=== PATIENT | male | born 1965 | race Caucasian/White ===

== ENCOUNTER 2016-06-22 08:08 | Emergency (ER) | payer OTHER ==
[~2016-06-22] VITALS: Ht 175.3 cm; Wt 98.5 kg
[~2016-06-22 08:08] MED LIST: VEDO1INJ IV
[2016-06-22 08:12] VITALS: TEMP 36.7; Ht 175.3 cm; Wt 98.5 kg
--- NOTE | 2016-06-22 09:24 | DIAGNOSTIC IMAGING REPORT ---
RIGHT LOWER EXTREMITY VENOUS DOPPLER CLINICAL HISTORY: Right leg swelling. COMPARISON STUDY: Right lower extremity venous Doppler November TECHNIQUE: Sonography of the deep venous system of the right lower extremity was performed. Compression and augmentation were evaluated. FINDINGS: The right common femoral, superficial femoral and popliteal veins were compressible. Augmentation was normal. Flow was shown within the deep calf vessels. IMPRESSION: No evidence of deep venous thrombus within the right lower extremity. Electronically signed by: Josué Galvan M.D. 06/22/2016 9:22 AM
--- NOTE | 2016-06-22 09:41 | EMERGENCY ROOM VISIT NOTE ---
History First contact with patient: 08:14 Chief Complaint: SWELLING TO EXTREMITY Stated Complaint: SWOLLEN FOOT/LEG History of Present Illness The patient is a 51 year old male who presents to the Emergency Room with complaints of swelling of his right lower extremity over the past few days. The patient is concerned because he has a history of DVT. The patient reports that he had a DVT in the right leg 5 years ago. He does not take anticoagulation at this time. He states that one month ago, he had some pain in his right calf during the night. He began taking aspirin and states he used holistic treatments and the pain resolved. He reports that swelling started in the right lower extremity over the past 3 days. He no longer has any pain in the right leg. He denies any redness or warmth of the leg. He denies any fevers/chills. He denies chest pain or shortness of breath. The patient is not a smoker. He denies any recent long travel. He denies any recent surgeries. Review of Systems A complete 10-point Review of Systems was discussed with the patient, with pertinent positives and negatives listed in the History of Present Illness. All remaining Review of Systems questions can be considered negative unless otherwise specified. Social History Smoking Status: Never Smoker Alcohol Use: none Drug Use: none Marital Status: single Housing Status: lives alone Occupation Status: employed Current/Historical Medications Scheduled Adalimumab (Humira), Unknown Dose INJ Q2WK Calcium/Vitamin D (Os-Boubacar 500 Plus D), 2 TAB PO DAILY Multivitamins/Minerals (Mvi With Minerals), 1 TAB PO Q2D Allergies Coded Allergies: Iodinated Diagnostic Agents (Verified Allergy, Severe, BURNING SENSATION, 06/22/16) Iodine (Verified Allergy, Mild, NAUSEA, FEVER, 06/22/16) Metronidazole (Verified Adverse Reaction, Intermediate, AFFECTED MUSCLE, ) Physical Exam Vital Signs Date Time Temp Pulse Resp B/P Pulse Ox O2 Delivery O2 Flow Rate FiO2 06/22/16 09:53 75 16 145/95 98 06/22/16 08:12 36.7 97 18 154/105 98 Room Air Physical Exam VITALS: Vitals are noted on the nurse's note and reviewed by myself. Vital signs stable. GENERAL: This is a 51-year-old male, in no acute distress, nondiaphoretic, well- developed well-nourished. SKIN: Capillary reflex less than 2 seconds. HEART: Regular rate and rhythm without murmurs gallops or rubs. LUNGS: Clear to auscultation bilaterally without wheezes, rales or rhonchi. EXTREMITIES: There is 1+ pitting edema of the right lower extremity. There is no erythema, warmth or palpable cords. There is no tenderness to palpation of the right calf. NEURO: Patient was alert and oriented to person place and time. Medical Decision & Procedures ER Provider Diagnostic Interpretation: RIGHT LOWER EXTREMITY VENOUS DOPPLER CLINICAL HISTORY: Right leg swelling. COMPARISON STUDY: Right lower extremity venous Doppler November TECHNIQUE: Sonography of the deep venous system of the right lower extremity was performed. Compression and augmentation were evaluated. FINDINGS: The right common femoral, superficial femoral and popliteal veins were compressible. Augmentation was normal. Flow was shown within the deep calf vessels. IMPRESSION: No evidence of deep venous thrombus within the right lower extremity. Medical Decision Differential diagnosis includes DVT, superficial thrombophlebitis, trauma, infection, among others. The patient was evaluated as above. Ultrasound of the right lower extremity was performed and showed no evidence of DVT. The etiology of the patient's swelling is unclear at this time. He was encouraged to elevate the leg to reduce swelling. He will follow-up with his primary care provider within one to 2 days for further evaluation of the swelling. He should return for any new/ concerning symptoms. The patient verbalized understanding of my assessment and treatment plan and was discharged home in good condition. Impression Primary Impression: Swelling of right lower extremity Departure Information Dispostion Home / Self-Care Condition GOOD Referrals Roby Murry D.O.Int.Med. (PCP) Patient Instructions A Signature Page, [facility] Additional Instructions Ultrasound today was negative for DVT. Follow-up with your primary care provider in one to 2 days for further evaluation of your right leg swelling. Elevate the leg as needed to decrease swelling. Return to the emergency department with pain, numbness, worsening swelling or any other new/concerning symptoms.
[2016-06-22 09:53] VITALS: BP 145/95; PULSE 75; O2SAT 98
[2016-12-29] MEDS ORDERED: CALC500C70 PO (08:40)
[2016-12-29] MEDS ORDERED: ADAL1INJ INJ (08:47)
[2016-12-29] MEDS ORDERED: MULTTAB PO (10:55)
[2017-01-17] MEDS ORDERED: WARF5TAB7 PO ×2 (13:49)
== END 2016-06-22 09:58 | disposition home or self-care (01) ==
LOC: C.EDB 08:10
DX: R22.41 Localized swelling, mass and lump, right lower limb (principal); Z86.718 Personal history of other venous thrombosis and embolism; Z79.82 Long term (current) use of aspirin; Z79.899 Other long term (current) drug therapy; Z88.8 Allergy status to other drugs, medicaments and biological substances; Z91.09 Other allergy status, other than to drugs and biological substances

== ENCOUNTER → 2016-09-08 | Outpatient (CLI) | payer OTHER ==
[~2016-09-08] MED LIST changes: +ADAL1INJ INJ; +CALC500C70 PO; +ENOX100I SQ; +MULTTAB PO; -VEDO1INJ IV; +WARF5TAB7 PO; +WARF5TAB90 PO
[2016-09-08 10:59] LABS: BASO % 1.5 %; BASO ABS # 0.12 K/uL (0-0.2); COMPLETE YES; HEMATOCRIT 47.1 % (42-52); IG% 0.1 %; LYMPH % 47.2 %; LYMPH ABS # 3.82 K/uL (1.2-3.4); MEAN CELL VOLUME 91.5 fL (80-100); MEAN PLATELET VOLUME 11.8 fL (7.4-10.4); NEUT % 28.2 %; PLATELET COUNT 303 K/uL (130-400); RED BLOOD COUNT 5.15 M/uL (4.7-6.1)
[2016-09-08 11:27] LABS: ALT/SGPT 39 U/L (12-78); AST/SGOT 42 U/L (15-37); BLOOD UREA NITROGEN 10 mg/dl (7-18); BUN/CREATININE RATIO 11.9 (10-20); C-REACTIVE PROTEIN < 0.29 mg/dl (0-0.29); CALCIUM 8.8 mg/dl (8.5-10.1); CARBON DIOXIDE 28 mmol/L (21-32); CHLORIDE 108 mmol/L (98-107); CREATININE 0.87 mg/dl (0.60-1.40); GLUCOSE 79 mg/dl (70-99); POTASSIUM 3.9 mmol/L (3.5-5.1); SODIUM 143 mmol/L (136-145)
[2016-09-08 11:29] LABS: ALB/GLOB RATIO 0.8 (0.9-2); ALKALINE PHOSPHATASE 150 U/L (45-117)
== END | disposition home or self-care (01) ==
LOC: C.LABBC 08:50
PROVIDERS: ATTEND Family Medicine
DX: R10.13 Epigastric pain (principal); K51.00 Ulcerative (chronic) pancolitis without complications

== ENCOUNTER → 2016-09-14 | Outpatient (CLI) | payer OTHER ==
--- NOTE | 2016-09-14 07:56 | DIAGNOSTIC IMAGING REPORT ---
BILIARY ULTRASOUND CLINICAL HISTORY: Epigastric abdominal pain COMPARISON STUDY: CT scan dated 08/30/2014 FINDINGS: The liver is heterogeneous in echotexture and slightly echogenic. Hepatocellular disease or a diffusely infiltrative process cannot be excluded. There is no intra or extrahepatic biliary ductal dilatation. The common bile duct measures 5 mm. No gallbladder abnormalities are visualized. There is no right-sided hydronephrosis. There is suboptimal evaluation of the pancreas. No definite pancreatic masses are evident. IMPRESSION: 1. Ultrasonographically normal gallbladder. No evidence of ductal dilatation. 2. Heterogeneous hepatic echotexture. This is a nonspecific finding which could be secondary to hepatic steatosis, hepatocellular disease, or an infiltrative process. Electronically signed by: Rbobie Vega M.D. 09/14/2016 7:55 AM Dictated Date/Time: 09/14/2016 7:52 AM
== END | disposition home or self-care (01) ==
LOC: C.ULTRBC 07:02
PROVIDERS: ATTEND Family Medicine
DX: R10.13 Epigastric pain (principal); K76.89 Other specified diseases of liver

== ENCOUNTER → 2016-09-27 | Outpatient (CLI) | payer OTHER ==
[~2016-09-27] MED LIST changes: +OPTIRAY 320 IV PRN
--- NOTE | 2016-09-27 15:54 | DIAGNOSTIC IMAGING REPORT ---
CT SCAN OF THE ABDOMEN COMBO LIVER PROTOCOL CLINICAL HISTORY: Hepatitis. Abnormal ultrasound. COMPARISON STUDY: Abdominal CT dated 08/30/2014. Abdominal ultrasound dated 09/14/2016. TECHNIQUE: Before and following the IV administration of 93 cc of Optiray 320, CT scan of the abdomen is performed from the lung bases to the pelvic inlet utilizing the liver protocol. Images are reviewed in the axial, sagittal, and coronal planes. IV contrast was administered without complication. Automated dose control exposure was utilized. CT DOSE: 2089.59 mGycm FINDINGS: Lung bases: The heart is normal in size and without pericardial effusion. The lung bases are clear. There is a tiny hiatal hernia. Mild gynecomastia is noted. Liver: The contrast-enhanced liver is cirrhotic in morphology and heterogeneous in attenuation. There is nodularity of the hepatic surface contour. There is no intrahepatic biliary ductal dilatation. There are no arterially hypervascular hepatic lesions. Hepatic and portal vasculature: Hepatic arterial anatomy is conventional. The hepatic veins, portal veins, superior mesenteric vein, and splenic vein are patent. Gallbladder: Unremarkable. Spleen: Diminutive. Pancreas: Mildly atrophic and grossly unremarkable. Adrenal glands: Unremarkable. Kidneys: The contrast enhanced kidneys are normal in size and without hydronephrosis. The kidneys enhance symmetrically. No renal calculi are identified on the unenhanced series. Abdominal vasculature: The abdominal aorta is normal in course and caliber. Bowel: Visualized portions of the small bowel and colon are normal in course and caliber. Peritoneum: There is no intraperitoneal free air or abdominal ascites. There is a fat-containing umbilical hernia. Lymphadenopathy: None. Skeletal structures: No lytic or blastic lesions are seen. IMPRESSION: 1. The liver is cirrhotic in morphology and heterogeneous in attenuation. 2. There is no evidence of portal hypertension by CT criteria. 3. No focal hepatic lesion is seen. 4. No acute infectious or inflammatory findings are identified in the abdomen. Electronically signed by: Hans Peacock M.D. 09/27/2016 3:52 PM Dictated Date/Time: 09/27/2016 3:47 PM
== END | disposition home or self-care (01) ==
LOC: C.CTS 14:10
PROVIDERS: ATTEND Internal Medicine
DX: R93.8 Abnormal findings on diagnostic imaging of other specified body structures (principal); K75.4 Autoimmune hepatitis

== ENCOUNTER → 2016-11-01 | Outpatient (CLI) | payer OTHER ==
[~2016-11-01] MED LIST changes: -OPTIRAY 320 IV PRN
[2016-11-01 12:40] LABS: BASO % 1.8 %; BASO ABS # 0.14 K/uL (0-0.2); COMPLETE YES; EOS % 12.2 %; HEMATOCRIT 47.9 % (42-52); IG% 0.1 %; LYMPH % 47.6 %; MEAN CELL VOLUME 91.2 fL (80-100); MEAN CORPUSCULAR HEMOGLOBIN 31.6 pg (25-34); MEAN CORPUSCULAR HGB CONC 34.7 g/dl (32-36); MEAN PLATELET VOLUME 11.7 fL (7.4-10.4); MONO % 12.5 %; NEUT % 25.8 %; PLATELET COUNT 266 K/uL (130-400); RED BLOOD COUNT 5.25 M/uL (4.7-6.1); WHITE BLOOD COUNT 7.98 K/uL (4.8-10.8)
[2016-11-01 12:49] LABS: PROTHROMBIN TIME (PATIENT) 10.4 SECONDS (9.0-12.0)
[2016-11-01 14:05] LABS: CHLORIDE 108 mmol/L (98-107); POTASSIUM 4.1 mmol/L (3.5-5.1); SODIUM 142 mmol/L (136-145)
[2016-11-01 14:56] LABS: ALKALINE PHOSPHATASE 125 U/L (45-117); ALT/SGPT 37 U/L (12-78); AST/SGOT 43 U/L (15-37); BLOOD UREA NITROGEN 8 mg/dl (7-18); BUN/CREATININE RATIO 8.6 (10-20); CARBON DIOXIDE 27 mmol/L (21-32); GLUCOSE 101 mg/dl (70-99)
[2016-11-01 14:58] LABS: ALB/GLOB RATIO 0.9 (0.9-2)
== END | disposition home or self-care (01) ==
LOC: C.LAB1850 11:37
PROVIDERS: ATTEND Registered Nurse
DX: K51.00 Ulcerative (chronic) pancolitis without complications (principal)

== ENCOUNTER 2016-12-29 14:56 | Emergency (ER) | payer OTHER ==
[~2016-12-29] VITALS: Ht 175.3 cm; Wt 95.4 kg
[~2016-12-29 14:56] MED LIST changes: -ENOX100I SQ; -WARF5TAB7 PO; -WARF5TAB90 PO
[2016-12-29 15:01] VITALS: TEMP 37; Ht 175.3 cm; Wt 95.4 kg
--- NOTE | 2016-12-29 16:31 | DIAGNOSTIC IMAGING REPORT ---
LEFT LOWER EXTREMITY VENOUS DOPPLER CLINICAL HISTORY: Left lower extremity pain and swelling. History of deep venous thrombus. COMPARISON STUDY: Left lower extremity venous Doppler December 08 2009. TECHNIQUE: Sonography of the deep venous system of the left lower extremity was performed. Compression and augmentation were evaluated. FINDINGS: The common femoral, superficial femoral and popliteal veins were compressible. Augmentation was normal. Flow was shown within the deep calf vessels. Note is made of superficial thrombus within the left greater saphenous vein which extends from the level the proximal thigh to the distal calf. Minimal flow is noted within the greater saphenous vein. IMPRESSION: 1. Extensive superficial thrombus within the left greater saphenous vein which extends from the level of the proximal thigh to distal calf. 2. No evidence of deep venous thrombus within the left lower extremity. Electronically signed by: Josué Galvan M.D. 12/29/2016 4:29 PM Dictated Date/Time: 12/29/2016 4:27 PM
[2016-12-29 18:00] LABS: BASO % 1.6 %; BASO ABS # 0.15 K/uL (0-0.2); COMPLETE YES; EOS % 6.5 %; IG% 0.1 %; LYMPH % 42.8 %; LYMPH ABS # 4.03 K/uL (1.2-3.4); MEAN CELL VOLUME 89.4 fL (80-100); MEAN CORPUSCULAR HEMOGLOBIN 31.9 pg (25-34); MEAN CORPUSCULAR HGB CONC 35.7 g/dl (32-36); MEAN PLATELET VOLUME 11.2 fL (7.4-10.4); MONO % 11.7 %; NEUT % 37.3 %; PLATELET COUNT 254 K/uL (130-400); RED BLOOD COUNT 5.48 M/uL (4.7-6.1); WHITE BLOOD COUNT 9.42 K/uL (4.8-10.8)
[2016-12-29 18:15] LABS: INR 0.9 (0.9-1.1); PROTHROMBIN TIME (PATIENT) 10.1 SECONDS (9.0-12.0)
[2016-12-29 18:20] LABS: CALCIUM 8.5 mg/dl (8.5-10.1); CREATININE 0.9 mg/dl (0.60-1.40); POTASSIUM 4.2 mmol/L (3.5-5.1)
[2016-12-29 18:30] LABS: ALB/GLOB RATIO 0.8 (0.9-2); THYROID STIMULATING HORMONE 1.74 uIu/ml (0.300-4.500)
[2016-12-29] MEDS ORDERED: ENOXAPARIN 100 MG/1ML SYR SQ ONE (18:30)
[2016-12-29] MEDS ORDERED: LOVENOX TEACHING KIT ONE (18:30)
[2016-12-29] MEDS ORDERED: WARFARIN SOD 5 MG TAB PO ONE (18:30)
[2016-12-29] MEDS ORDERED: WARF5TAB90 PO (19:03)
[2016-12-29] MEDS ORDERED: ENOX100I SQ (19:03)
[2016-12-29 19:34] VITALS: BP 130/93; PULSE 77; O2SAT 99
--- NOTE | 2016-12-29 23:57 | EMERGENCY ROOM VISIT NOTE ---
History First contact with patient: 15:12 Chief Complaint: LEG PAIN,LEG INJURY Stated Complaint: REDNESS, WELLING, MINOR PAIN, DISCOMFORT, L LEG History of Present Illness The patient is a 51 year old male who presents to the Emergency Room with complaints of slowly worsening pain and swelling to his left lower leg. The pain is primarily along his left medial calf and into his left distal thigh. The patient has not had fever or chills. He has a history of Crohn's and is on Humira. The patient also has a history of DVT in the right lower leg years ago. He did complete Coumadin and is no longer on anticoagulants. He does not have any known coagulopathy. The patient does not report injury or trauma. No recent travel history. The patient rates his discomfort a 1/10 and dull in nature. He has not taken anything [id number] for his symptoms. He does not identify aggravating or alleviating factors. Review of Systems More than 10 systems were reviewed and otherwise negative with the exception of history of present illness. Past Medical/Surgical History History of Crohn's disease and DVT Family History No pertinent family history Social History Smoking Status: Never Smoker Alcohol Use: none Drug Use: none Marital Status: single Housing Status: lives alone Occupation Status: employed Current/Historical Medications Scheduled Adalimumab (Humira), 1 DOSE INJ Q2WK Calcium/Vitamin D (Os-Boubacar 500 Plus D), 2 TABS PO DAILY Enoxaparin (Lovenox), 100 MG SQ Q12 Multivitamins/Minerals (Mvi With Minerals), 1 TAB PO Q2D Warfarin Sodium (Coumadin), 1 TAB PO DAILY Allergies Coded Allergies: Iodinated Diagnostic Agents (Verified Allergy, Severe, BURNING SENSATION, 06/22/16) Iodine (Verified Allergy, Mild, NAUSEA, FEVER, 06/22/16) Shellfish (Verified Allergy, Unknown, Unknown, 12/29/16) Metronidazole (Verified Adverse Reaction, Intermediate, AFFECTED MUSCLE, ) Physical Exam Vital Signs Date Time Temp Pulse Resp B/P (MAP) Pulse Ox O2 Delivery O2 Flow Rate FiO2 12/29/16 19:34 77 18 130/93 99 12/29/16 15:01 37.0 104 17 119/80 98 Room Air Physical Exam VITALS: Vitals are noted on the nurse's note and reviewed by myself. Vital signs stable. GENERAL: Well-developed, well-nourished, white male, who is in no acute distress and resting comfortably. Patient is cooperative with the examination. HEAD: Normocephalic atraumatic. HEART: Regular rate and rhythm without murmurs gallops or rubs. LUNGS: Clear to auscultation bilaterally without wheezes, rales or rhonchi. No retractions or accessory muscle use. MUSCULOSKELETAL: Tenderness appreciated along the medial aspect of the left calf into the left thigh posteriorly. No obviously palpable cord. No tenderness of the joint. No obvious infection. Medical Decision & Procedures ER Provider Diagnostic Interpretation: LEFT LOWER EXTREMITY VENOUS DOPPLER CLINICAL HISTORY: Left lower extremity pain and swelling. History of deep venous thrombus. COMPARISON STUDY: Left lower extremity venous Doppler December 08 2009. TECHNIQUE: Sonography of the deep venous system of the left lower extremity was performed. Compression and augmentation were evaluated. FINDINGS: The common femoral, superficial femoral and popliteal veins were compressible. Augmentation was normal. Flow was shown within the deep calf vessels. Note is made of superficial thrombus within the left greater saphenous vein which extends from the level the proximal thigh to the distal calf. Minimal flow is noted within the greater saphenous vein. IMPRESSION: 1. Extensive superficial thrombus within the left greater saphenous vein which extends from the level of the proximal thigh to distal calf. 2. No evidence of deep venous thrombus within the left lower extremity. Laboratory Results 12/29/16 17:35 Red Blood Count 5.48, Mean Corpuscular Volume 89.4, Mean Corpuscular Hemoglobin 31.9, Mean Corpuscular Hemoglobin Concent 35.7, Mean Platelet Volume 11.2, Neutrophils (%) (Auto) 37.3, Lymphocytes (%) (Auto) 42.8, Monocytes (%) (Auto) 11.7, Eosinophils (%) (Auto) 6.5, Basophils (%) (Auto) 1.6, Neutrophils # (Auto ) 3.52, Lymphocytes # (Auto) 4.03, Monocytes # (Auto) 1.10, Eosinophils # (Auto ) 0.61, Basophils # (Auto) 0.15 12/29/16 17:35 Test 12/29/16 17:35 White Blood Count 9.42 K/uL (4.8-10.8) Red Blood Count 5.48 M/uL (4.7-6.1) Hemoglobin 17.5 g/dL (14.0-18.0) Hematocrit 49.0 % (42-52) Mean Corpuscular Volume 89.4 fL (80-100) Mean Corpuscular Hemoglobin 31.9 pg (25-34) Mean Corpuscular Hemoglobin Concent 35.7 g/dl (32-36) Platelet Count 254 K/uL (130-400) Mean Platelet Volume 11.2 fL (7.4-10.4) Neutrophils (%) (Auto) 37.3 % Lymphocytes (%) (Auto) 42.8 % Monocytes (%) (Auto) 11.7 % Eosinophils (%) (Auto) 6.5 % Basophils (%) (Auto) 1.6 % Neutrophils # (Auto) 3.52 K/uL (1.4-6.5) Lymphocytes # (Auto) 4.03 K/uL (1.2-3.4) Monocytes # (Auto) 1.10 K/uL (0.11-0.59) Eosinophils # (Auto) 0.61 K/uL (0-0.5) Basophils # (Auto) 0.15 K/uL (0-0.2) RDW Standard Deviation 49.3 fL (36.4-46.3) RDW Coefficient of Variation 15.1 % (11.5-14.5) Immature Granulocyte % (Auto) 0.1 % Immature Granulocyte # (Auto) 0.01 K/uL (0.00-0.02) Prothrombin Time 10.1 SECONDS (9.0-12.0) Prothromb Time International Ratio 0.9 (0.9-1.1) Activated Partial Thromboplast Time 27.2 SECONDS (21.0-31.0) Partial Thromboplastin Ratio 1.0 Anion Gap 5.0 mmol/L (3-11) Est Creatinine Clear Calc Drug Dose 111.9 ml/min Estimated GFR () 115.0 Estimated GFR (Non- 99.2 BUN/Creatinine Ratio 7.0 (10-20) Calcium Level 8.5 mg/dl (8.5-10.1) Total Bilirubin 0.5 mg/dl (0.2-1) Aspartate Amino Transf (AST/SGOT) 48 U/L (15-37) Alanine Aminotransferase (ALT/SGPT) 46 U/L (12-78) Alkaline Phosphatase 141 U/L (45-117) Total Protein 7.7 gm/dl (6.4-8.2) Albumin 3.5 gm/dl (3.4-5.0) Globulin 4.2 gm/dl (2.5-4.0) Albumin/Globulin Ratio 0.8 (0.9-2) Thyroid Stimulating Hormone (TSH) 1.740 uIu/ml (0.300-4.500) Medications Administered Medications (Trade) Dose Ordered Sig/Purvi Route Start Time Stop Time Status Last Admin Dose Admin Enoxaparin Sodium (Lovenox Inj) 95 mg NOW ONCE SQ 12/29/16 18:30 12/29/16 18:32 DC 12/29/16 18:51 95 MG Miscellaneous (Lovenox Teaching Kit) 1 ea NOW ONCE N/A 12/29/16 18:30 12/29/16 18:32 DC 12/29/16 18:30 1 EA Warfarin Sodium (Coumadin Tab) 10 mg NOW ONCE PO 12/29/16 18:30 12/29/16 18:32 DC 12/29/16 18:52 10 MG ED Course Physical exam and history were performed. Nursing notes and EMR were reviewed. Patient appears to have pain in his left lower extremity from his midcalf to midthigh. The patient has a history of unprovoked DVT in the past, and states that his symptoms feel similar. He is without chest pain or shortness of breath. He does not appear toxic on examination. Ultrasound was performed and does show extensive thrombosis of the superficial saphenous vein. This seems to measure greater than 5 cm and there is concern is the patient has a past history of DVT previously. Because of this the patient is felt to be a candidate for anticoagulopathy, and he agrees. Blood work was obtained and is as above. The patient does not have a significantly elevated white blood cell count. He is without significant renal impairment and his platelet count appears normal. Hypercoagulable labs are pending, as these are send out labs. He does not have a history of recent injury or trauma. No cancer or recent surgery. There are no obvious contraindications for anticoagulation. The patient was started on Lovenox 100 mg subcutaneous here in the department. He was also started on 10 mg oral Coumadin as an initial dose. He underwent Lovenox teaching by the ER pharmacist. I discussed the case with the keycase assembler, as evidently the patient has followed with [facility] physician group previously, however his primary care has left the practice. The patient should be considered a patient under their group, and he will need to contact their facility first thing in the morning. We will have case management call him later in the morning to confirm that he was able to get a follow-up appointment. The patient will need repeat blood work and likely referral to the Coumadin clinic. I contacted the patient's pharmacy ([facility]) directly, and was able to confirm they had both Lovenox and Coumadin in stock. Prescriptions for both of these were sent to the patient's pharmacy, and he is to begin these tomorrow. Overall the patient voiced understanding of this plan. I am unsure of the length of time the patient will need to be on Coumadin. He will need to have this discussion with his primary care physician and the Coumadin clinic. He may need lifetime treatment pending his anti-coagulable workup. The patient was educated on bleeding disorders and consultations from these medications. He was invited back to the ER with any new, worsening, or concerning symptoms. He rated his discomfort a 0/10 at the time of departure. The chart was completed utilizing [employer] Speech Voice Recognition Software. Grammatical errors, random word insertions, pronoun errors, and incomplete sentences are an occasional consequence of this system due to software limitations, ambient noise, and hardware issues. Any formal questions or concerns about the content, text, or information contained within the body of this dictation should be directly addressed to the provider for clarification. . Medical Decision Differential diagnosis: Etiologies such as DVT, musculoskeletal, infection, joint effusion, trauma, lymphedema, idiopathic, CHF, as well as others were entertained.. Impression Primary Impression: Superficial thrombosis of leg Additional Impression: History of DVT (deep vein thrombosis) Departure Information Prescriptions Enoxaparin (LOVENOX) 100 Mg/Ml Inj 100 MG SQ Q12 for 7 Days, #14 SYR Prov: Vijay Arana PA-C 12/29/16 Warfarin Sodium (COUMADIN) 5 Mg Tab 1 TAB PO DAILY for 30 Days, #30 TAB 0 Refills Prov: Vijay Arana PA-C 12/29/16 Referrals No Doctor, Assigned (PCP) Patient Instructions [facility] Problem Qualifiers Primary Impression: Superficial thrombosis of leg Laterality: left Qualified Codes: I82.812 - Embolism and thrombosis of superficial veins of left lower extremities
[2017-01-04 00:27] LABS: ANTITHROMBINIII ACTIVITY** 57 % activity (80-120); B2 GLYCOPROTEIN IGA <9 SAU (<=20); B2 GLYCOPROTEIN IGG <9 SGU (<=20); B2 GLYCOPROTEIN IGM 10 SMU (<=20); LUPUS ANTICOAGULANT** TC36573X Negative (Negative); PROTEIN C ACTIVITY** TC 1777X 116 % (70-180); PROTEIN S ACT(FUNCT)**1779X 79 % (70-150)
[2017-01-17] MEDS ORDERED: WARF5TAB7 PO ×2 (13:49)
== END 2016-12-29 19:37 | disposition home or self-care (01) ==
LOC: C.EDB 14:57 → C.EDA 19:37
DX: I82.812 Embolism and thrombosis of superficial veins of left lower extremity (principal); Z86.718 Personal history of other venous thrombosis and embolism; K50.90 Crohn's disease, unspecified, without complications; Z79.899 Other long term (current) drug therapy

== ENCOUNTER → 2016-12-31 | Outpatient (CLI) | payer OTHER ==
[~2016-12-31] MED LIST changes: +ENOX100I SQ; +WARF5TAB7 PO; +WARF5TAB90 PO
[2016-12-31 12:16] LABS: INR 1.3 (0.9-1.1)
== END | disposition home or self-care (01) ==
LOC: C.LAB1850 10:26
PROVIDERS: ATTEND Nurse Practitioner Adult Health
DX: I82.819 Embolism and thrombosis of superficial veins of unspecified lower extremity (principal)

== ENCOUNTER → 2017-01-03 | Outpatient (CLI) | payer OTHER | END | disposition home or self-care (01) | LOC: C.LABSPEC 09:58 | PROVIDERS: ATTEND Physician Assistant | DX: K51.00 Ulcerative (chronic) pancolitis without complications (principal) ==

== ENCOUNTER → 2017-05-04 | Outpatient (CLI) | payer OTHER ==
[~2017-05-04] MED LIST changes: -ENOX100I SQ; -WARF5TAB90 PO
[2017-05-04 14:56] LABS: PROLACTIN 9.46 ng/mL
== END | disposition home or self-care (01) ==
LOC: C.LAB1850 11:51
PROVIDERS: ATTEND Neuromusculoskeletal Medicine & OMM
DX: N63.0 Unspecified lump in unspecified breast (principal); N62 Hypertrophy of breast

== ENCOUNTER 2019-12-17 07:27 | Observation (INO) ==
--- NOTE | 2019-08-30 09:42 | Anesthesiology Consultation ---
Date of Service August 30, 2019 Assessment & Plan Chart Review Chart Review: clerk entry level initiated History Surgery Operation Date: 09/07/19 08:30 Proposed Procedures p Colonoscopy Dr. Ronny Jefferson, Height/Weight Height: 5 ft 9 in Weight: 90.718 kg Allergies Allergy/AdvReac Type Severity Reaction Status Date / Time Iodinated Contrast Media Allergy Severe BURNING Verified 08/29/19 16:16 SENSATION iodine Allergy Mild NAUSEA, Verified 08/29/19 16:16 FEVER metronidazole Allergy Mild lost Verified 08/29/19 16:16 complete muscle control in thigh shellfish derived Allergy Mild nausea/feve Verified 08/29/19 16:16 r Medications Home Medications Medication Instructions Recorded Confirmed Last Taken multivitamin with minerals 1 tab PO Q OTHER DAY #0 10/08/14 08/29/19 03/26/18 calcium carbonate-vitamin D3 1 tabs PO QAM #0 tab 04/07/16 08/29/19 03/27/18 [Os-Boubacar 500 + D3] sodium,potassium,mag sulfates 17.5 177 ml PO DAILY #354 ml 08/21/19 08/29/19 Unknown gram-3.13 gram-1.6 gram oral soln Simponi 100 mg SUBCUT UD 08/29/19 08/29/19 Unknown prednisone 10 mg PO UD 08/29/19 08/29/19 Unknown Past Medical History Medical History Colon polyps Deep vein thrombosis 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 Ulcerative colitis Past Family History Family History Father Family history of diabetes mellitus Grandmother Family history of diabetes mellitus paternal Past Surgical History Surgical History History of appendectomy History of colonoscopy History of flexible sigmoidoscopy History of tooth extraction wisdom teeth Social History Smoking Status: Never smoker Do You Dip or Chew Tobacco: No Hx Alcohol Use: No Hx Substance Use: No substance use type: does not use
--- NOTE | 2019-12-11 13:33 | Anesthesiology Consultation ---
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 Ronny Jefferson, Height/Weight Height: 5 ft 9 in Weight: 90.718 kg Allergies Allergy/AdvReac Type Severity Reaction Status Date / Time Iodinated Contrast Media Allergy Severe BURNING Verified 12/10/19 10:40 SENSATION iodine Allergy Mild NAUSEA, Verified 12/10/19 10:40 FEVER metronidazole Allergy Mild lost Verified 12/10/19 10:40 complete muscle control in thigh shellfish derived Allergy Mild nausea/feve Verified 12/10/19 10:40 r Medications Home Medications Medication Instructions Recorded Confirmed Last Taken multivitamin with minerals 1 tab PO Q OTHER DAY #0 10/08/14 12/10/19 03/26/18 calcium carbonate-vitamin D3 1 tabs PO QAM #0 tab 04/07/16 12/10/19 03/27/18 [Os-Boubacar 500 + D3] sodium,potassium,mag sulfates 17.5 177 ml PO DAILY #354 ml 08/21/19 11/06/19 Unknown gram-3.13 gram-1.6 gram oral soln Simponi 100 mg SUBCUT UD 08/29/19 12/10/19 Unknown Past Medical History Medical History Colon polyps Deep vein thrombosis 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 History of DVT (deep vein thrombosis) (Inactive) Superficial thrombosis of leg (Inactive) Ulcerative colitis Past Family History Family History Father Family history of diabetes mellitus Grandmother Family history of diabetes mellitus paternal Past Surgical History Surgical History History of appendectomy History of colonoscopy History of flexible sigmoidoscopy History of tooth extraction wisdom teeth Social History Smoking Status: Never smoker Do You Dip or Chew Tobacco: No Hx Alcohol Use: No Hx Substance Use: No substance use type: does not use Testing Laboratory Results Laboratory Tests 07/24/18 08/16/19 08/16/19 07:56 11:41 11:41 WBC 7.52 Hgb 15.8 Hct 45.3 Plt Count 261 PT 21.8 H INR 2.3 H Sodium 141 Potassium 3.4 L Chloride 108 H Carbon Dioxide 27 BUN 9 Creatinine 1.12 Glucose 117 H Travel history reviewed. Pt low risk. Pt has no COVID test pending. Reassess day of procedure.
[2019-12-17] MEDS ORDERED: PROPOFOL IV EMULSION 10 MG/ML 20 ML VIAL IV ONE (08:09)
[2019-12-17] MEDS ORDERED: LIDOCAINE HCL 2% 2 ML VIAL/AMP(20MG/ML) INFIL ONE (08:09)
--- NOTE | 2019-12-17 08:26 | History & Physical Report ---
Date of Service December 17, 2019 Assessment & Plan (1) Ulcerative colitis: Proceed with colonoscopy History of Present Illness Chief Complaint: Ulcerative pancolitis Primary Care Provider: Golden Dye III, CRNP 54 yo CM who presents for colonoscopy secondary to ulcerative pancolitis. Allergies Allergy/AdvReac Type Severity Reaction Status Date / Time Iodinated Contrast Media Allergy Severe BURNING Verified 12/17/19 08:01 SENSATION iodine Allergy Mild NAUSEA, Verified 12/17/19 08:01 FEVER metronidazole Allergy Mild lost Verified 12/17/19 08:01 complete muscle control in thigh shellfish derived Allergy Mild nausea/feve Verified 12/17/19 08:01 r Home Medications Home Medications Medication Instructions Recorded Confirmed Type multivitamin with minerals 1 tab PO Q OTHER DAY #0 10/08/14 12/17/19 History calcium carbonate-vitamin D3 1 tabs PO QAM #0 tab 04/07/16 12/17/19 History [Os-Boubacar 500 + D3] sodium,potassium,mag sulfates 17.5 177 ml PO DAILY #354 ml 08/21/19 12/17/19 Rx gram-3.13 gram-1.6 gram oral soln Simponi 100 mg SUBCUT UD 08/29/19 12/17/19 History Past Med/Surg History Medical History Colon polyps Deep vein thrombosis 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 History of DVT (deep vein thrombosis) (Inactive) Superficial thrombosis of leg (Inactive) Ulcerative colitis Surgical History History of appendectomy History of colonoscopy History of flexible sigmoidoscopy History of tooth extraction wisdom teeth Family History Father Family history of diabetes mellitus Grandmother Family history of diabetes mellitus paternal Social History Preferred Language: Austrian Facilities Clerk Required: No Beliefs That Will Affect Care: None Current Living Situation: Alone Other Information That Helps Us Care for You: No Feels Safe at Home: Yes Safety Concerns: Feels Safe At This Time Smoking Status: Never smoker Do You Dip or Chew Tobacco: No ; Second Hand Exposure: No ; Tobacco Cessation Education Requested by Patient: No Hx Alcohol Use: No Hx Substance Use: No Physical Exam Constitutional: WD/WN, vitals as above Respiratory: normal respiratory effort, lungs clear to auscultation Cardiovascular: RRR, no murmur, no edema Gastrointestinal (Abdomen): normal bowel sounds, soft, nontender, no hepatosplenomegaly Results & Data Vital Signs (Past 12 Hours) Vital Signs Temp Pulse Resp BP Pulse Ox 12/17/19 08:05 36.7 C 90 18 119/87 97 Coding Level of Care Code None Diagnoses Ulcerative colitis K51.90
[2019-12-17] MEDS ORDERED: SODIUM CHLORIDE 0.9% 1000ML 1,000 ML IV SCH (08:30)
--- NOTE | 2019-12-17 08:53 | GI REPORT ---
Patient Name: Jonathan Larios Procedure Date: 12/17/2019 8:17 AM Date of : 1965 Admit Type: Outpatient Age: 54 Gender: Male Attending MD: Nick Jefferson DO Procedure: Colonoscopy Providers: Nick Jefferson DO Referring MD: Golden Dye Indications: Disease activity assessment of chronic ulcerative pancolitis Medicines: Monitored Anesthesia Care Complications: Tear in the proximal ascending colon. Estimated Blood Loss: Estimated blood loss was minimal. Procedure: Pre-Anesthesia Assessment: - Prior to the procedure, a History and Physical was performed, and patient medications and allergies were reviewed. The patient's tolerance of previous anesthesia was also reviewed. The risks and benefits of the procedure and the sedation options and risks were discussed with the patient. All questions were answered, and informed consent was obtained. Prior Anticoagulants: The patient has taken no previous anticoagulant or antiplatelet agents. ASA Grade Assessment: II - A patient with mild systemic disease. After reviewing the risks and benefits, the patient was deemed in satisfactory condition to undergo the procedure. After I obtained informed consent, the scope was passed under direct vision. Throughout the procedure, the patient's blood pressure, pulse, and oxygen saturations were monitored continuously. The Colonoscope was introduced through the anus and advanced to the terminal ileum. The colonoscopy was performed without difficulty. The patient tolerated the procedure fairly well. Findings: The perianal and digital rectal examinations were normal. Inflammation characterized by altered vascularity, congestion (edema), erythema, scarring and confluent ulcerations was found in a continuous and circumferential pattern from the rectum to the terminal ileum with evidence of backwash ileitis. No sites were spared. This was severe, and when compared to previous examinations, the findings are worsened. Fluid aspiration for cell count and differential, bacterial cultures and Clostridium difficile was performed in the entire colon. Impression: - Pancolitis ulcerative colitis. Inflammation was found from the rectum to the terminal ileum (backwash Ileitis). This was severe, worsened compared to previous examinations. - Fluid aspiration was performed. Recommendation: - Admit the patient to hospital [facility] for ongoing care. - NPO. - Continue present medications. - Refer to a surgeon today. - Perform a CT scan (computed tomography) of abdomen with contrast and pelvis with contrast today. Nick Jefferson DO 12/17/2019 8:53:19 AM This report has been signed electronically. Note Initiated On: 12/17/2019 8:17 AM Number of Addenda: 0 I attest to the content of the Intraoperative Record and orders documented therein, exceptions below {[id number]}
--- NOTE | 2019-12-17 09:08 | Gastrointestinal Consultation ---
Date of Consultation December 17, 2019 Assessment & Plan (1) Ulcerative pancolitis: Patient is a 54 yo male with ulcerative pancolitis worsened from his baseline who presented for an outpatient colonoscopy today. Given friability of colonic mucosa there is concern for perforation. History of non-compliance with maintaining a steady biologic option. Currently on Simponi. -Admit to inpatient status -Keep NPO -CT abdomen/pelvis with po & IV contrast STAT to r/o perforation -IV Solumedrol 40 mg BID -General surgery consult. Given treatment failure & non-compliance with other medications, even if patient does not currently have a perforation--concern would be whether he would benefit from a colectomy in the future given the severity of his disease. We will continue to follow this patient and make further recommendations as the clinical situation unfolds. If you should have any questions or concerns, do not hesitate to contact us at [phone] or [phone]. Supervising Physician Co-Signing Physician Notes Agree with Violet Montalvo, PAC Abd: Soft, NT, ND, +BS Continue current therapy CT scan today Surgery consult History of Present Illness Reason for Consultation: Ulcerative Colitis Attending Physician: Nick Jefferson, DO History of Present Illness Patient is a 54 yo male who presented to [facility] for a colonoscopy to further assess his Ulcerative pancolitis. 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 The patient's colonoscopy this morning indicated severe panulcerative colitis with friable tissue and concern was for perforation. After a combination of non-compliance and reported side effects or lack of desire to continue other medications, he has made his way through Remicade, Humira, Entyvio, 6MP and now is on Simponi which is not typically first choice for his disease. He had requested to take Xeljanz, however it was explained that his liver issues are a contraindication to this therapy. In July 2019, he contacted the outpatient clinic to report worsening symptoms of his UC. He reported diarrhea 10-12 times daily with fecal urgency, associated abdominal discomfort, & fatigue despite his Simponi injections. He obtained a CBC, CMP, CRP, C diff, stool culture, & stool calprotectin at that time. When his infectious work-up was negative, he was placed on an 8 week steroid therapy. Allergies Allergy/AdvReac Type Severity Reaction Status Date / Time Iodinated Contrast Media Allergy Severe BURNING Verified 12/17/19 08:01 SENSATION iodine Allergy Mild NAUSEA, Verified 12/17/19 08:01 FEVER metronidazole Allergy Mild lost Verified 12/17/19 08:01 complete muscle control in thigh shellfish derived Allergy Mild nausea/feve Verified 12/17/19 08:01 r Home Medications Home Medications Medication Instructions Recorded Confirmed Type multivitamin with minerals 1 tab PO Q OTHER DAY #0 10/08/14 12/17/19 History calcium carbonate-vitamin D3 1 tabs PO QAM #0 tab 04/07/16 12/17/19 History [Os-Boubacar 500 + D3] sodium,potassium,mag sulfates 17.5 177 ml PO DAILY #354 ml 08/21/19 12/17/19 Rx gram-3.13 gram-1.6 gram oral soln Simponi 100 mg SUBCUT UD 08/29/19 12/17/19 History Patient History Medical History (Updated 12/17/19 @ 10:05 by Stephany Peña PA-C) Colon polyps Deep vein thrombosis 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 History of DVT (deep vein thrombosis) Superficial thrombosis of leg (Inactive) Ulcerative colitis Surgical History History of appendectomy History of colonoscopy History of flexible sigmoidoscopy History of tooth extraction wisdom teeth Family History Father Family history of diabetes mellitus Grandmother Family history of diabetes mellitus paternal Social History Preferred Language: Turkmen Bowling Ball Marker Required: No Beliefs That Will Affect Care: None Current Living Situation: Alone Other Information That Helps Us Care for You: No Feels Safe at Home: Yes Safety Concerns: Feels Safe At This Time Smoking Status: Never smoker Do You Dip or Chew Tobacco: No ; Second Hand Exposure: No ; Tobacco Cessation Education Requested by Patient: No Hx Alcohol Use: No Hx Substance Use: No Review of Systems Constitutional: no fever Eyes: no problem reported Ear, Nose, Mouth, Throat: no problem reported Respiratory: no cough and no dyspnea Cardiovascular: no chest pain Gastrointestinal: + abdominal pain and + diarrhea/loose stools Musculoskeletal: no problem reported Integumentary: no rash Neurologic: no problem reported Psychiatric: no problem reported Endocrine: + fatigue Physical Exam Constitutional: WD/WN, vitals as above Eyes: PERRL, conjunctivae normal, anicteric sclerae ENMT: Ears: no hearing impairment Neck: normal visual inspection Respiratory: normal respiratory effort, lungs clear to auscultation Cardiovascular: Rate/Rhythm: regular rate and regular rhythm Gastrointestinal (Abdomen): normal bowel sounds, soft, nontender, no hepatosplenomegaly Musculoskeletal: no cyanosis or clubbing, extremities motor strength 5/5 Skin: no rashes, warm and dry Neurologic: Speech / Cognition: normal speech Psychiatric: A+Ox3, euthymic affect Results & Data ([facility]) Vital Signs (Past 12 Hours) Vital Signs Temp Pulse Resp BP Pulse Ox 12/17/19 08:48 87 18 126/83 99 12/17/19 08:05 36.7 C 90 18 119/87 97 PG Care Time/CCT Total # of Minutes Spent Total Time Spent with Patient: Total time spent is greater than 50% in coordination of care (as documented) at patient's floor/unit and/or counseling patient: Coding Level of Care Code 44828 Inpt Consult Level 4 Diagnoses Ulcerative pancolitis K51.00
--- NOTE | 2019-12-17 09:15 | Anesthesiology Progress Note ---
Date of Service December 17, 2019 Anesthesia Post Procedure Vital Signs Vital Signs: Temp Pulse Resp BP Pulse Ox 12/17/19 09:03 90 16 136/99 98 12/17/19 08:48 87 18 126/83 99 12/17/19 08:05 36.7 C 90 18 119/87 97 Transfer of Care Handoff Completed per policy Notes Mental Status: alert / awake / arousable and participated in evaluation Patient Amnestic to Procedure: Yes Nausea / Vomiting: adequately controlled Pain: adequately controlled Airway Patency, RR, SpO2: stable & adequate BP & HR: stable & adequate Hydration State: stable & adequate Anesthetic Complications: no major complications apparent
[2019-12-17] MEDS ORDERED: PIPERACILL/TAZOBAC CONSULT ACTIVE PRN (09:39)
--- NOTE | 2019-12-17 10:06 | History & Physical Report ---
Date of Service December 17, 2019 Assessment & Plan (1) Ulcerative pancolitis: - Admit to med/surg with tele - CT abd/pelvis per GI - oral contrast only -- pt reports allergic rxn to IV and required premedication with benadryl in the past. - Will obtain cbc, bmp, crp - GI consulted - discussed with Violet Montalvo - Will have stool studies as per GI - Start zosyn IV empirically for now - Generally surg consult for possible colon perf - Will start solumedrol 40 mg IV BID (2) Cirrhosis of liver: (3) Autoimmune hepatitis: - Hx of such, follows with GI hepatology with [facility] - Pt reports that this was 15-20 years ago and he follows with this group, outpt within the last 2 years - will await CT report to see status of this (4) DVT prophylaxis: DVT ppx- teds, ambulatory CODE: Full Dispo: From home, likely to remain in the hospital x 1-2 days. History of Present Illness Primary Care Provider: Golden Dye, DESIRAE, MARIANNE This is a 54-year-old male with past medical history of ulcerative pancolitis, mainly medication noncompliance, history of multiple medication failures, and cirrhosis due to autoimmune hepatitis, hx of DVT, HTN, pre-diabetes, who presents for routine colonoscopy with Dr. Jefferson. He was found to have severely friable mucosa of the colon which cause concern for during procedure, and was concerns for possible perforation of the colon therefore medicine was asked to admit the patient. He denies any acute complaints currently, feels slightly distended after having procedure but no pain. No history of nausea, vomiting, bloody diarrhea, or pain. He reports that prednisone has worked well for him in the past as far as reducing the ulcerative colitis flare. He admits to having tried multiple medications in the past, with the best one being humira, however required a double dose of this and states his insurance would not cover it. He is currently on Symposi monthly injections for UC, and has the next dose being delivered to his house tomorrow. Allergies Allergy/AdvReac Type Severity Reaction Status Date / Time Iodinated Contrast Media Allergy Severe BURNING Verified 12/17/19 08:01 SENSATION iodine Allergy Mild NAUSEA, Verified 12/17/19 08:01 FEVER metronidazole Allergy Mild lost Verified 12/17/19 08:01 complete muscle control in thigh shellfish derived Allergy Mild nausea/feve Verified 12/17/19 08:01 r Home Medications Home Medications Medication Instructions Recorded Confirmed Type multivitamin with minerals 1 tab PO Q OTHER DAY #0 10/08/14 12/17/19 History calcium carbonate-vitamin D3 1 tabs PO QAM #0 tab 04/07/16 12/17/19 History [Os-Boubacar 500 + D3] sodium,potassium,mag sulfates 17.5 177 ml PO DAILY #354 ml 08/21/19 12/17/19 Rx gram-3.13 gram-1.6 gram oral soln Simponi 100 mg SUBCUT UD 08/29/19 12/17/19 History Past Med/Surg History Medical History (Updated 12/17/19 @ 10:05 by Stephany Peña PA-C) Colon polyps Deep vein thrombosis 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 History of DVT (deep vein thrombosis) Superficial thrombosis of leg (Inactive) Ulcerative colitis Surgical History History of appendectomy History of colonoscopy History of flexible sigmoidoscopy History of tooth extraction wisdom teeth Family History Father Family history of diabetes mellitus Grandmother Family history of diabetes mellitus paternal Social History Preferred Language: Bulgarian Residential Worker Required: No Beliefs That Will Affect Care: None Current Living Situation: Alone Other Information That Helps Us Care for You: No Feels Safe at Home: Yes Safety Concerns: Feels Safe At This Time Smoking Status: Never smoker Do You Dip or Chew Tobacco: No ; Second Hand Exposure: No ; Tobacco Cessation Education Requested by Patient: No Hx Alcohol Use: No Hx Substance Use: No Review of Systems Review of Systems: Constitutional: No fever, sweats or chills Eyes: No diplopia, no worsening or blurred vision ENT: normal hearing, no trouble swallowing Respiratory: No cough, sputum, dyspnea at rest or on exertion Cardiovascular: No chest pain, tightness or palpitations Abdomen: No pain, nausea, vomiting, diarrhea or constipation Musculoskeletal: No joint pain, calf pain, swelling Neurologic: No weakness, numbness/tingling, or balance problems Psychiatric: No anxiety or depression Skin: No rash or itch Physical Exam Physical Exam: General: awake, alert, no apparent distress Head: Normocephalic, atraumatic ENT: PERRL, EOMI, no pharyngeal exudate, mucous membranes moist Chest: Clear to auscultation, on room air, no adventitious breath sounds Cardiac: Regular rate and rhythm, no murmur, no JVD, normal peripheral pulses, good capillary refill Abdominal: NABS x 4 quadrants, soft, nontender to palpation, no rebound, guarding or tenderness Extremities: Normal inspection, no peripheral edema or erythema, calfs nontender to palpation Psych: Normal mood and affect Neuro: AAO x 3, strength intact bilaterally and related 5/5, no motor deficits, speech is clear, no peripheral sensory deficits Results & Data Results & Data ([facility]) Vital Signs (Past 12 Hours) Vital Signs Temp Pulse Resp BP Pulse Ox 12/17/19 09:18 88 16 132/91 98 12/17/19 09:03 90 16 136/99 98 12/17/19 08:48 87 18 126/83 99 12/17/19 08:05 36.7 C 90 18 119/87 97 Code Status & VTE Plan Code Status Full - discussed with the pt VTE Prophylaxis Plan VTE Prophylaxis will be ordered: Yes Supervising Physician Co-Signing Physician Notes During my face to face enocunter with the patient, I obtained a history and physical examination. I answered all of the patients question Agree with DYLAN Tobin Patient continues to have bloody and loose stools. This is likely from his ulcerative pancolitis. Patient will require steroids and response likely takes about 48-72 hours. will monitor hemoglobin. Continue current therapy PG Care Time/CCT Total # of Minutes Spent Total Time Spent with Patient: Total time spent is greater than 50% in coordination of care (as documented) at patient's floor/unit and/or counseling patient: Coding Level of Care Code 08137 Initial Inpt Care Lvl 3 Diagnoses Ulcerative pancolitis K51.00 Cirrhosis of liver K74.60 Autoimmune hepatitis K75.4 DVT prophylaxis Z29.9
--- NOTE | 2019-12-17 12:42 | CT Scan Report ---
CT abd pelvis oral con only CT DOSE: 445.76 mGy.cm HISTORY: Pain. UC, r/o perf TECHNIQUE: Multiaxial CT images of the abdomen and pelvis were performed following the use of oral co ntrast. A dose lowering technique was utilized adhering to the principles of ALARA. COMPARISON STUDY: 09/27/2016 FINDINGS: Lung bases are clear. Mild hepatic cirrhosis unchanged. Kidneys negative for calcification or hydronephrosis. There is a 2 mm nonobstructing cortical calcifi cation lower left kidney. The small bowel pattern is unremarkable. Colon demonstrated generalized wall thickening throughout. There is mild pericolonic infiltrative yobany nge. There is no evidence for abscess collection or free fluid. There are several small reactive mesenteric and omental nodes. No evidence for abscess. Several small air bubbles extrinsic to the lumen of the mid ascending colon best seen transaxial imag e 181 IMPRESSION: 1. Generalized nonspecific colitis involving the colon.. 2. Mild pericolonic infiltrative change. 3. No evidence for abscess collection obstruction. 4. Moderate reactive mesenteric and/or omental adenitis. 5. Several small localized air bubbles adjacent to the mid ascending colon suggesting small focal per forations. ACT 112: Negative or not required by law. The above report was generated using voice recognition software. It may contain grammatical, syntax or spelling errors. Electronically signed by: Brody Rios M.D. 12/17/2019 12:41 PM
[2019-12-17] MEDS ORDERED: ACETAMINOPHEN 325 MG TAB PO PRN (12:45)
[2019-12-17] MEDS ORDERED: ONDANSETRON INJ 2 MG/ML 2 ML VIAL IV PRN (12:45)
[2019-12-17] MEDS: LACTATED RINGER'S 1,000 ML IV SCH ×2 (12:52→21:44)
[2019-12-17] MEDS ORDERED: PIPERACILLIN/TAZOBACTAM 3.375 GM in DEXTROSE 5% 100 ML IV ONE (13:00)
[2019-12-17] MEDS: methylPREDNISolone 40 MG in SYRINGE 0 ML IV SCH ×2 (13:30→20:34)
[2019-12-17 14:06] LABS: Estimated Average Glucose 123 mg/dl; Hemoglobin A1C 5.9 % (4.5-5.6)
--- NOTE | 2019-12-17 14:54 | Surgery Consultation ---
Date of Consultation December 17, 2019 Assessment & Plan (1) Ulcerative pancolitis: 54-year-old male with significant ulcerative pancolitis. His CT scan did reveal some microperforation, but no evidence of significant inflammation or abscess. His exam is mostly benign. At this point I would recommend bowel rest, antibiotics, and consideration of steroid therapy given his UC flare. He should consider elective total proctocolectomy in the future which should be performed by colorectal surgeon. I informed him that we would only perform an emergency total abdominal colectomy if absolutely necessary here. If his condition fails to improve we may consider transfer to a tertiary center for evaluation by colorectal surgeon. Surgery will continue to follow, call with questions or concerns. (2) Autoimmune hepatitis: History of Present Illness Reason for Consultation: Ulcerative colitis, possible perforation Attending Physician: Nick Jefferson, DO History of Present Illness 54-year-old male with long history of ulcerative colitis, with worsening symptoms over the past few weeks despite biologic therapy. He is tried multiple medicines in the past and has had repeated flares. He did discuss his case with a colorectal surgeon in the past, but did not want to have 3 surgeries or an ostomy for any period of time. Over the past week he has had worsening cramping along with some bloody bowel movements. Dr. Jefferson performed a colonoscopy this morning and noticed significant inflammation and induration and friability of the mucosa, and was concerned that he could have ischemia or perforation. The patient was admitted to the medicine service, and a CT scan was ordered with oral contrast. Surgery was consulted to assist with management. Upon entering the room the patient is sitting up comfortably, complains of some cramping from the colonoscopy but no significant abdominal pain. He is in no acute distress. He takes Simponi, and is due for a dose tomorrow. Allergies Allergy/AdvReac Type Severity Reaction Status Date / Time Iodinated Contrast Media Allergy Severe BURNING Verified 12/17/19 08:01 SENSATION iodine Allergy Mild NAUSEA, Verified 12/17/19 08:01 FEVER metronidazole Allergy Mild lost Verified 12/17/19 08:01 complete muscle control in thigh shellfish derived Allergy Mild nausea/feve Verified 12/17/19 08:01 r Home Medications Home Medications Medication Instructions Recorded Confirmed Type multivitamin with minerals 1 tab PO Q OTHER DAY #0 10/08/14 12/17/19 History calcium carbonate-vitamin D3 1 tabs PO QAM #0 tab 04/07/16 12/17/19 History [Os-Boubacar 500 + D3] sodium,potassium,mag sulfates 17.5 177 ml PO DAILY #354 ml 08/21/19 12/17/19 Rx gram-3.13 gram-1.6 gram oral soln Simponi 100 mg SUBCUT UD 08/29/19 12/17/19 History Patient History Medical History (Updated 12/17/19 @ 10:05 by Stephany Peña PA-C) Colon polyps Deep vein thrombosis 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 History of DVT (deep vein thrombosis) Superficial thrombosis of leg (Inactive) Ulcerative colitis Surgical History History of appendectomy History of colonoscopy History of flexible sigmoidoscopy History of tooth extraction wisdom teeth Family History Father Family history of diabetes mellitus Grandmother Family history of diabetes mellitus paternal Social History Preferred Language: [place] Icer Hand Required: No Beliefs That Will Affect Care: None Current Living Situation: Alone Other Information That Helps Us Care for You: No Feels Safe at Home: Yes Safety Concerns: Feels Safe At This Time Smoking Status: Never smoker Do You Dip or Chew Tobacco: No ; Second Hand Exposure: No ; Tobacco Cessation Education Requested by Patient: No Hx Alcohol Use: No Hx Substance Use: No Review of Systems Review of Systems: All systems reviewed & are unremarkable except as noted in HPI & below Physical Exam Constitutional: WD/WN, vitals as above Eyes: PERRL, conjunctivae normal, anicteric sclerae ENMT: external ear and nose normal, oropharynx normal Neck: trachea midline, no thyromegaly Respiratory: normal respiratory effort, lungs clear to auscultation Cardiovascular: RRR, no murmur, no edema Gastrointestinal (Abdomen): Percussion/Palpation: + abdomen tender (Abdomen with mild tenderness to palpation throughout, no guarding or rebound.) and abdomen soft; no guarding, abdomen not rigid and no hepatosplenomegaly Musculoskeletal: no cyanosis or clubbing, extremities motor strength 5/5 Skin: no rashes, warm and dry Neurologic: PERRL, EOMI, accommodation nl, no face palsy, no dysarthria Psychiatric: A+Ox3, euthymic affect Lymphatic: no cervical or axillary lymphadenopathy Results & Data Vital Signs (Past 12 Hours) Vital Signs Temp Pulse Resp BP Pulse Ox 12/17/19 11:25 36.7 C 77 18 131/87 98 12/17/19 09:18 88 16 132/91 98 12/17/19 09:03 90 16 136/99 98 12/17/19 08:48 87 18 126/83 99 12/17/19 08:05 36.7 C 90 18 119/87 97 Laboratory Results Laboratory Results - last 24 hr 12/17/19 12/17/19 12/17/19 08:39 13:04 13:04 Estimat Average Glucose 123 Hemoglobin A1c 5.9 H Lactate C-Reactive Protein 0.78 H Stl C. diff Tox B Gene Negative Cdiff Gene 12/17/19 13:22 Estimat Average Glucose Hemoglobin A1c Lactate 2.1 H* C-Reactive Protein Stl C. diff Tox B Gene Diagnostic Findings [place], [place] [phone] CT Scan Report Patient: DANNY ARAYA Date: 12/17/19 MR#: [id number]: [address] [place] [address] Acct ID:[id number]: Date: 1965ty Zip: [place] [address] Age: 54Location: ENDO Sex: M Room/Bed: Att Phy: Nick Jefferson, DODiagnosis: Diarrhea, Fecal Urgency, Other Fatigue Kourtney Phy: Golden Dye, III, CRNPService Date: 12/17/19 Fam Phy:Interpreting Phy: Brody Rios MD Admit Phy: Ordering Phy: Violet Montalvo PA-C cc: ~ CT abd pelvis oral con only CT DOSE: 445.76 mGy.cm HISTORY: Pain. UC, r/o perf TECHNIQUE: Multiaxial CT images of the abdomen and pelvis were performed following the use of oral contrast. A dose lowering technique was utilized adhering to the principles of ALA. COMPARISON STUDY: 09/27/2016 FINDINGS: Lung bases are clear. Mild hepatic cirrhosis unchanged. Kidneys negative for calcification or hydronephrosis. There is a 2 mm nonobstructing cortical calcification lower left kidney. The small bowel pattern is unremarkable. Colon demonstrated generalized wall thickening throughout. There is mild pericolonic infiltrative change. There is no evidence for abscess collection or free fluid. There are several small reactive mesenteric and omental nodes. No evidence for abscess. Several small air bubbles extrinsic to the lumen of the mid ascending colon best seen transaxial image 181 IMPRESSION: 1. Generalized nonspecific colitis involving the colon.. 2. Mild pericolonic infiltrative change. 3. No evidence for abscess collection obstruction. 4. Moderate reactive mesenteric and/or omental adenitis. 5. Several small localized air bubbles adjacent to the mid ascending colon suggesting small focal perforations. PG Care Time/CCT Total # of Minutes Spent Total Time Spent with Patient: Total time spent is greater than 50% in coordination of care (as documented) at patient's floor/unit and/or counseling patient: Coding Level of Care Code 69519 Inpt Consult Level 3 Diagnoses Ulcerative pancolitis K51.00 Autoimmune hepatitis K75.4
[2019-12-17 15:45] LABS: Basophils # (auto) 0.03 K/uL (0-0.2); Basophils % (auto) 0.3 %; Eosinophils # (auto) 0.09 K/uL (0-0.5); Eosinophils % (auto) 0.8 %; Hematocrit (blood only) 48.3 % (42-52); Immature Granulocytes # (auto) 0.02 K/uL (0.00-0.02); Immature Granulocytes % (auto) 0.2 %; Mean Corpuscular Hemoglobin 32.4 pg (25-34); Mean Corpuscular Hgb Conc 35.2 g/dL (32-36); Mean Corpuscular Volume 92.2 fL (80-100); Mean Platelet Volume 10.5 fL (7.4-10.4); Monocytes # (auto) 0.44 K/uL (0.11-0.59); Neutrophils # (auto) 9.09 K/uL (1.4-6.5); Neutrophils % (auto) 83.7 %; Platelet Count 266 K/uL (130-400); RDW Coefficient of Variation 13.6 % (11.5-14.5); RDW Standard Deviation 46.2 fL (36.4-46.3); Red Blood Count 5.24 M/uL (4.7-6.1); White Blood Count 10.87 K/uL (4.8-10.8)
[2019-12-17 16:01] LABS: Albumin Level 2.6 gm/dl (3.4-5.0); BUN Creatinine Ratio 8.6 (10-20); Calcium 8.7 mg/dl (8.5-10.1); Creatinine Clr Calc Pharmacy 87.2 ml/min; Est GFR (African American) 101.6; Est GFR (Non-African American) 87.7; Potassium 3.8 mmol/L (3.5-5.1)
[2019-12-17 16:04] LABS: Albumin Globulin Ratio 0.6 (0.9-2); Bilirubin,Total 0.7 mg/dl (0.2-1); Globulin 4.3 gm/dl (2.5-4.0); Total Protein 6.9 gm/dl (6.4-8.2)
[2019-12-17 16:08] LABS: INR 1.1 (0.9-1.1); Partial Thromboplastin Time 27.3 Seconds (21.0-31.0); Prothrombin Time 11.3 Seconds (9.0-12.0)
[2019-12-17] MEDS: PIPERACILLIN/TAZOBACTAM 3.375 GM in DEXTROSE 5% 100 ML IV SCH (17:40)
[2019-12-18] MEDS: PIPERACILLIN/TAZOBACTAM 3.375 GM in DEXTROSE 5% 100 ML IV SCH ×3 (02:14→17:15)
[2019-12-18] MEDS: LACTATED RINGER'S 1,000 ML IV SCH (06:28)
[2019-12-18 06:53] LABS: Hematocrit (blood only) 48.6 % (42-52); Hemoglobin 17.1 g/dL (14.0-18.0); Mean Corpuscular Hemoglobin 32.1 pg (25-34); Mean Corpuscular Hgb Conc 35.2 g/dL (32-36); Mean Corpuscular Volume 91.2 fL (80-100); Platelet Count 300 K/uL (130-400); RDW Coefficient of Variation 13.6 % (11.5-14.5); RDW Standard Deviation 45.3 fL (36.4-46.3); Red Blood Count 5.33 M/uL (4.7-6.1); White Blood Count 11.33 K/uL (4.8-10.8)
[2019-12-18 07:31] LABS: Albumin Level 2.8 gm/dl (3.4-5.0); BUN Creatinine Ratio 10.8 (10-20); Calcium 8.7 mg/dl (8.5-10.1); Creatinine Clr Calc Pharmacy 74.9 ml/min; Est GFR (African American) 84.6; Potassium 3.8 mmol/L (3.5-5.1)
[2019-12-18 07:33] LABS: Albumin Globulin Ratio 0.6 (0.9-2); Bilirubin,Total 0.8 mg/dl (0.2-1); Globulin 4.6 gm/dl (2.5-4.0); Total Protein 7.4 gm/dl (6.4-8.2)
--- NOTE | 2019-12-18 07:44 | Anesthesiology Progress Note ---
Date of Service December 18, 2019 Anesthesia Post Procedure Vital Signs Vital Signs: Temp Pulse Resp BP Pulse Ox 12/18/19 07:14 36.6 C 70 16 126/81 98 12/18/19 03:27 36.4 C L 60 15 127/84 96 12/17/19 23:10 36.5 C 73 16 120/79 96 12/17/19 19:13 37.0 C 77 16 117/78 98 12/17/19 15:34 37.0 C 72 16 120/79 97 12/17/19 11:25 36.7 C 77 18 131/87 98 12/17/19 09:18 88 16 132/91 98 12/17/19 09:03 90 16 136/99 98 12/17/19 08:48 87 18 126/83 99 12/17/19 08:05 36.7 C 90 18 119/87 97 Notes Mental Status: alert / awake / arousable and participated in evaluation Patient Amnestic to Procedure: Yes Nausea / Vomiting: adequately controlled Pain: adequately controlled Airway Patency, RR, SpO2: stable & adequate BP & HR: stable & adequate Hydration State: stable & adequate Anesthetic Complications: no major complications apparent
[2019-12-18] MEDS: CALCIUM 600MG + VIT D 400 IU TAB PO SCH (07:46)
[2019-12-18] MEDS: CEROVITE ADV FORMULA TAB PO SCH (07:46)
[2019-12-18] MEDS: methylPREDNISolone 40 MG in SYRINGE 0 ML IV SCH ×2 (07:47→21:33)
--- NOTE | 2019-12-18 08:27 | Surgery Progress Note ---
Date of Service December 18, 2019 Assessment & Plan (1) Ulcerative pancolitis: remains stable continue IV abx Supervising Physician Co-Signing Physician Notes Patient seen and examined, agree with above 54-year-old male with severe refractory ulcerative pancolitis with small microperforation, currently being managed with antibiotics and steroids. This morning he feels much better, still has some cramping but this is improved. He is no longer having bloody bowel movements. On exam he is afebrile with stable vitals. His abdomen is soft, minimally tender, no guarding. White blood cell count stable to slightly up, likely due to steroids. Severe refractory ulcerative pancolitis with microperforation, doing well on antibiotics and steroids. No emergent surgical management at this time Yesterday we discussed need for likely elective outpatient total proctocolectomy Surgery will follow peripherally, call with questions or concerns Subjective having flatus, bowels moving, no longer passing red blood Physical Exam Gastrointestinal (Abdomen): Inspection/Auscultation: abdomen not distended Percussion/Palpation: abdomen soft; abdomen nontender Results & Data Vital Signs (Past 12 Hours) Vital Signs Temp Pulse Resp BP Pulse Ox 12/18/19 07:14 36.6 C 70 16 126/81 98 12/18/19 03:27 36.4 C L 60 15 127/84 96 12/17/19 23:10 36.5 C 73 16 120/79 96 PG Care Time/CCT Total # of Minutes Spent Total Time Spent with Patient: Total time spent is greater than 50% in coordination of care (as documented) at patient's floor/unit and/or counseling patient: Coding Level of Care Code 12426 Inpt Consult Level 1 Diagnoses Ulcerative pancolitis K51.00
--- NOTE | 2019-12-18 09:20 | Hospitalist Progress Note ---
Date of Service December 18, 2019 Assessment & Plan (1) Ulcerative pancolitis: - Admit to med/surg -Also has microperforation -Will continue on steroids and antibiotics. Patient appears to be improving. -Will continue to monitor. -appreciate input from GI and Surgery. - Start zosyn IV empirically for now - Generally surg consult for possible colon perf - Will start solumedrol 40 mg IV BID hemoglobin appears to be stable (2) Cirrhosis of liver: (3) Autoimmune hepatitis: - Hx of such, follows with GI hepatology with [facility] - Pt reports that this was 15-20 years ago and he follows with this group, outpt within the last 2 years - will await CT report to see status of this (4) DVT prophylaxis: DVT ppx- teds, ambulatory CODE: Full Dispo: From home, likely to remain in the hospital x 1-2 days. Admission and Anticipated Discharge Date Admission Date: December 17, 2019 Subjective Patient reports feeling better. He reports only one BM overight. He states the consistency is still the same, however the BM has less blood and it appears to be dried up and "flaky". Review of Systems Review of Systems: All systems reviewed & are unremarkable except as noted in HPI & below Physical Exam Physical Exam: General: awake, alert, no apparent distress Head: Normocephalic, atraumatic ENT: PERRL, EOMI, no pharyngeal exudate, mucous membranes moist Chest: Clear to auscultation, on room air, no adventitious breath sounds Cardiac: Regular rate and rhythm, no murmur, no JVD, normal peripheral pulses, good capillary refill Abdominal: NABS x 4 quadrants, soft, nontender to palpation, no rebound, guarding or tenderness Extremities: Normal inspection, no peripheral edema or erythema, calfs nontender to palpation Psych: Normal mood and affect Neuro: AAO x 3, strength intact bilaterally and related 5/5, no motor deficits, speech is clear, no peripheral sensory deficits Results & Data Results & Data ([facility]) Vital Signs (Past 12 Hours) Vital Signs Temp Pulse Resp BP Pulse Ox 12/18/19 07:14 36.6 C 70 16 126/81 98 12/18/19 03:27 36.4 C L 60 15 127/84 96 12/17/19 23:10 36.5 C 73 16 120/79 96 PG Care Time/CCT Total # of Minutes Spent Total Time Spent with Patient: Total time spent is greater than 50% in coordination of care (as documented) at patient's floor/unit and/or counseling patient: Coding Level of Care Code 71502 Subseq Hosp Care Lvl 2 Diagnoses Ulcerative pancolitis K51.00 Cirrhosis of liver K74.60 Autoimmune hepatitis K75.4 DVT prophylaxis Z29.9
--- NOTE | 2019-12-18 10:01 | Gastroenterology Progress Note ---
Date of Service December 18, 2019 Assessment & Plan (1) Ulcerative pancolitis: -Continue IV Solumedrol 40 mg BID -Upon discharge, will anticipate the need for an 8 week Prednisone taper beginning at 40 mg daily x 1 week and decreasing by 5 mg weekly for the 8 week total; Would recommend utilizing a calcium & vitamin D supplement for bone health while taking Prednisone. -Patient currently on Simponi, however has tried and failed many options. Will proceed with colorectal surgery evaluation as an outpatient to discuss total proctocolectomy. Present on Admission?: Yes (2) Colon perforation: -Surgical consult appreciated -Will need outpatient colorectal surgery evaluation (patient prefers [facility]) -Continue IV Zosyn -NPO Present on Admission?: Yes Admission and Anticipated Discharge Date Admission Date: December 17, 2019 Supervising Physician Co-Signing Physician Notes Agree with DYLAN Novoa Abd: Soft, NT, ND, +BS Continue Simponi until seen by Colorectal surgeon at [facility] Recommend Steroid taper on discharge starting at 40 mg daily for 1 week then decrease 5 mg weekly for 8 week total Subjective Patient is a 54 yo male with severe ulcerative pancolitis admitted after a colonoscopy on 12/17/19. A CT scan indicated several small localized bubbles in the mid ascending colon and this was suggestive of small perforations. He reports improvement of abdominal bloating and discomfort. He reports that since this morning, his rectal bleeding seems to have improved. He will need a total proctocolectomy (non-emergently) on an outpatient basis and wishes to go to [facility]. He denies further acute issues at present. His WBC count is currently 11,330. He is on IV Zosyn & IV Solumedrol. Review of Systems Constitutional: no fever and no chills Respiratory: no cough and no dyspnea Cardiovascular: no chest pain Gastrointestinal: + abdominal pain and + blood in stools (improving) Integumentary: no problem reported Physical Exam Constitutional: WD/WN, vitals as above Neck: normal visual inspection Respiratory: normal respiratory effort Cardiovascular: Extremities: no edema Gastrointestinal (Abdomen): Inspection/Auscultation: abdomen normal to inspection; abdomen not distended Percussion/Palpation: abdomen nontender Skin: no rashes Psychiatric: A+Ox3, euthymic affect Results & Data Results & Data ([facility]) Vital Signs (Past 12 Hours) Vital Signs Temp Pulse Resp BP Pulse Ox 12/18/19 07:14 36.6 C 70 16 126/81 98 12/18/19 03:27 36.4 C L 60 15 127/84 96 12/17/19 23:10 36.5 C 73 16 120/79 96 PG Care Time/CCT Total # of Minutes Spent Total Time Spent with Patient: Total time spent is greater than 50% in co ordination of care (as documented) at patient's floor/unit and/or counseling patient: Coding Level of Care Code 18287 Subseq Hosp Care Lvl 3 Diagnoses Ulcerative pancolitis K51.00 Colon perforation K63.1
[2019-12-19] MEDS: PIPERACILLIN/TAZOBACTAM 3.375 GM in DEXTROSE 5% 100 ML IV SCH ×3 (01:52→17:50)
[2019-12-19 06:10] LABS: Hematocrit (blood only) 46.7 % (42-52); Hemoglobin 16.2 g/dL (14.0-18.0); Mean Corpuscular Hemoglobin 31.6 pg (25-34); Mean Corpuscular Hgb Conc 34.7 g/dL (32-36); Platelet Count 290 K/uL (130-400); RDW Coefficient of Variation 13.7 % (11.5-14.5); RDW Standard Deviation 45.6 fL (36.4-46.3); Red Blood Count 5.13 M/uL (4.7-6.1); White Blood Count 15.66 K/uL (4.8-10.8)
[2019-12-19 06:37] LABS: Albumin Level 2.6 gm/dl (3.4-5.0); BUN Creatinine Ratio 14.4 (10-20); Calcium 8.7 mg/dl (8.5-10.1); Creatinine Clr Calc Pharmacy 82.1 ml/min; Est GFR (African American) 94.6; Est GFR (Non-African American) 81.6; Potassium 4.1 mmol/L (3.5-5.1)
[2019-12-19 06:40] LABS: Albumin Globulin Ratio 0.6 (0.9-2); Bilirubin,Total 0.7 mg/dl (0.2-1); Globulin 4.1 gm/dl (2.5-4.0); Total Protein 6.7 gm/dl (6.4-8.2)
[2019-12-19] MEDS: methylPREDNISolone 40 MG in SYRINGE 0 ML IV SCH ×2 (07:51→21:19)
[2019-12-19] MEDS: CALCIUM 600MG + VIT D 400 IU TAB PO SCH (07:51)
--- NOTE | 2019-12-19 09:37 | Surgery Progress Note ---
Date of Service December 19, 2019 Assessment & Plan (1) Ulcerative pancolitis: Severe ulcerative pancolitis, microperforation. Improving with antibiotics and steroids. No surgical intervention indicated Continue management per GI and medicine, likely transition to oral antibiotics and steroids and advance diet as tolerated to low residual Follow-up with colorectal surgery electively as an outpatient for possible proctocolectomy Surgery will follow peripherally Subjective 54-year-old male admitted with severe ulcerative pancolitis with microperforation. Doing well, tolerated liquids. Still having frequent bowel movements but no blood. Abdominal discomfort is improved. Physical Exam Constitutional: WD/WN, vitals as above Gastrointestinal (Abdomen): normal bowel sounds, soft, nontender, no hepatosplenomegaly Results & Data Vital Signs (Past 12 Hours) Vital Signs Temp Pulse Resp BP Pulse Ox 12/19/19 08:00 36.5 C 72 16 116/78 99 12/18/19 23:10 36.4 C L 66 15 113/73 99 PG Care Time/CCT Total # of Minutes Spent Total Time Spent with Patient: Total time spent is greater than 50% in coordination of care (as documented) at patient's floor/unit and/or counseling patient: Coding Level of Care Code 83316 Office/OBS Consult Lvl 3 Diagnoses Ulcerative pancolitis K51.00
--- NOTE | 2019-12-19 22:12 | Hospitalist Progress Note ---
Date of Service December 19, 2019 Assessment & Plan (1) Ulcerative pancolitis: - Admit to med/surg -Also has microperforation -Will continue on steroids and antibiotics. Florentin remain on IV steroids for another day. Patient appears to be improving as no longer having blood in his stools. -Will continue to monitor. -appreciate input from GI and Surgery. - ashley rodgersn, due to allergies, will transition him to augmentin. - Generally surg consult for possible colon perf - continue on solumedrol 40 mg IV BID hemoglobin appears to be stable (2) Cirrhosis of liver: (3) Autoimmune hepatitis: - Hx of such, follows with GI hepatology with [facility] - Pt reports that this was 15-20 years ago and he follows with this group, outpt within the last 2 years - will await CT report to see status of this (4) DVT prophylaxis: DVT ppx- teds, ambulatory CODE: Full Dispo: From home, likely to remain in the hospital x 1-2 days. Admission and Anticipated Discharge Date Admission Date: December 17, 2019 Subjective Patient reports feeling better. He continues to be concerned about his diarrhea, but no longer is having blood in his stools. Review of Systems Review of Systems: All systems reviewed & are unremarkable except as noted in HPI & below Physical Exam Physical Exam: General: awake, alert, no apparent distress Head: Normocephalic, atraumatic ENT: PERRL, EOMI, no pharyngeal exudate, mucous membranes moist Chest: Clear to auscultation, on room air, no adventitious breath sounds Cardiac: Regular rate and rhythm, no murmur, no JVD, normal peripheral pulses, good capillary refill Abdominal: NABS x 4 quadrants, soft, nontender to palpation, no rebound, guarding or tenderness Extremities: Normal inspection, no peripheral edema or erythema, calfs nontender to palpation Psych: Normal mood and affect Neuro: AAO x 3, strength intact bilaterally and related 5/5, no motor deficits, speech is clear, no peripheral sensory deficits Results & Data Results & Data ([facility]) Vital Signs (Past 12 Hours) Vital Signs Temp Pulse Resp BP Pulse Ox 12/19/19 15:57 36.5 C 65 16 111/70 96 PG Care Time/CCT Total # of Minutes Spent Total Time Spent with Patient: Total time spent is greater than 50% in coordination of care (as documented) at patient's floor/unit and/or counseling patient: Coding Level of Care Code 43083 Subseq Hosp Care Lvl 3 Diagnoses Ulcerative pancolitis K51.00 Cirrhosis of liver K74.60 Autoimmune hepatitis K75.4 DVT prophylaxis Z29.9 Time Spent (min) 35
[2019-12-20] MEDS: PIPERACILLIN/TAZOBACTAM 3.375 GM in DEXTROSE 5% 100 ML IV SCH (02:30)
[2019-12-20 06:01] LABS: Hematocrit (blood only) 44.5 % (42-52); Hemoglobin 15.7 g/dL (14.0-18.0); Mean Corpuscular Hemoglobin 32.2 pg (25-34); Mean Corpuscular Hgb Conc 35.3 g/dL (32-36); Mean Corpuscular Volume 91.2 fL (80-100); Platelet Count 279 K/uL (130-400); RDW Standard Deviation 46.3 fL (36.4-46.3); Red Blood Count 4.88 M/uL (4.7-6.1); White Blood Count 14.58 K/uL (4.8-10.8)
[2019-12-20 06:38] LABS: Albumin Level 2.5 gm/dl (3.4-5.0); BUN Creatinine Ratio 15.8 (10-20); Calcium 8.3 mg/dl (8.5-10.1); Est GFR (African American) 87.4; Est GFR (Non-African American) 75.4; Potassium 4.3 mmol/L (3.5-5.1)
[2019-12-20 06:41] LABS: Albumin Globulin Ratio 0.7 (0.9-2); Bilirubin,Total 0.5 mg/dl (0.2-1); Globulin 3.8 gm/dl (2.5-4.0); Total Protein 6.3 gm/dl (6.4-8.2)
[2019-12-20] MEDS: CALCIUM 600MG + VIT D 400 IU TAB PO SCH (07:56)
[2019-12-20] MEDS: methylPREDNISolone 40 MG in SYRINGE 0 ML IV SCH (07:57)
[2019-12-20] MEDS: CEROVITE ADV FORMULA TAB PO SCH (07:57)
[2019-12-20] MEDS: AMOXICILLIN/CLAVULANATE 875 MG TAB PO SCH (17:21)
[2019-12-20] MEDS ORDERED: methylPREDNISolone 20 MG in SYRINGE 0 ML IV ONE (21:15)
--- NOTE | 2019-12-20 22:29 | Hospitalist Progress Note ---
Date of Service December 20, 2019 Assessment & Plan (1) Ulcerative pancolitis: - Admit to med/surg -Also has microperforation -Will continue on steroids and antibiotics. Florentin remain on IV steroids for another day. Plan for dischrge in AM. Patient appears to be improving as no longer having blood in his stools. -Will continue to monitor. -appreciate input from GI and Surgery. will transition him to augmentin. - Appreciate input from Gen surgery and GI. - continue on solumedrol 40 mg IV BID hemoglobin appears to be stable (2) Cirrhosis of liver: (3) Autoimmune hepatitis: - Hx of such, follows with GI hepatology with [facility] - Pt reports that this was 15-20 years ago and he follows with this group, outpt within the last 2 years - will await CT report to see status of this (4) DVT prophylaxis: DVT ppx- teds, ambulatory CODE: Full Dispo: Likely discharge in AM. Admission and Anticipated Discharge Date Admission Date: December 17, 2019 Subjective 54 yo male reports feeling well. He has no new complaints. He states his diarrhea has decreased in frequency. The consistency remains loose however. Review of Systems Review of Systems: All systems reviewed & are unremarkable except as noted in HPI & below Physical Exam Physical Exam: General: awake, alert, no apparent distress Head: Normocephalic, atraumatic ENT: PERRL, EOMI, no pharyngeal exudate, mucous membranes moist Chest: Clear to auscultation, on room air, no adventitious breath sounds Cardiac: Regular rate and rhythm, no murmur, no JVD, normal peripheral pulses, good capillary refill Abdominal: NABS x 4 quadrants, soft, nontender to palpation, no rebound, guarding or tenderness Extremities: Normal inspection, no peripheral edema or erythema, calfs nontender to palpation Psych: Normal mood and affect Neuro: AAO x 3, strength intact bilaterally and related 5/5, no motor deficits, speech is clear, no peripheral sensory deficits Results & Data Results & Data ([facility]) Vital Signs (Past 12 Hours) Vital Signs Temp Pulse Resp BP Pulse Ox 12/20/19 15:35 36.8 C 63 16 118/75 94 PG Care Time/CCT Total # of Minutes Spent Total Time Spent with Patient: Total time spent is greater than 50% in coordination of care (as documented) at patient's floor/unit and/or counseling patient: Coding Level of Care Code 65895 Subseq Hosp Care Lvl 3 Diagnoses Ulcerative pancolitis K51.00 Cirrhosis of liver K74.60 Autoimmune hepatitis K75.4 DVT prophylaxis Z29.9 Time Spent (min) 35
[2019-12-21] MEDS: AMOXICILLIN/CLAVULANATE 875 MG TAB PO SCH (08:47)
[2019-12-21] MEDS: CALCIUM 600MG + VIT D 400 IU TAB PO SCH (08:47)
[2019-12-21] MEDS ORDERED: predniSONE 50 MG TAB PO ONE (09:20)
--- NOTE | 2019-12-27 22:41 | Discharge Summary ---
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 Jefferson. He was found to have severely friable mucosa of the colon which cause concern for during procedure, and was concerns for possible perforation of the colon therefore medicine was asked to admit the patient. He denies any acute complaints currently, feels slightly distended after having procedure but no pain. No history of nausea, vomiting, bloody diarrhea, or pain. He reports that prednisone has worked well for him in the past as far as reducing the ulcerative colitis flare. He admits to having tried multiple medications in the past, with the best one being humira, however required a double dose of this and states his insurance would not cover it. He is currently on Symposi monthly injections for UC, and has the next dose being delivered to his house tomorrow. Principal Diagnosis ulcerative pancolitis Discharge Exam General: awake, alert, no apparent distress Head: Normocephalic, atraumatic ENT: PERRL, EOMI, no pharyngeal exudate, mucous membranes moist Chest: Clear to auscultation, on room air, no adventitious breath sounds Cardiac: Regular rate and rhythm, no murmur, no JVD, normal peripheral pulses, good capillary refill Abdominal: NABS x 4 quadrants, soft, nontender to palpation, no rebound, guarding or tenderness Extremities: Normal inspection, no peripheral edema or erythema, calfs nontender to palpation Psych: Normal mood and affect Neuro: AAO x 3, strength intact bilaterally and related 5/5, no motor deficits, speech is clear, no peripheral sensory deficits Discharge Data Allergies Allergy/AdvReac Type Severity Reaction Status Date / Time Iodinated Contrast Media Allergy Severe BURNING Verified 12/17/19 08:01 SENSATION iodine Allergy Mild NAUSEA, Verified 12/17/19 08:01 FEVER metronidazole Allergy Mild lost Verified 12/17/19 08:01 complete muscle control in thigh shellfish derived Allergy Mild nausea/feve Verified 12/17/19 08:01 r Consultations 12/17/19 09:01 Consult Hospitalist Routine 12/17/19 09:04 Consult General Surgery Routine 12/17/19 12:45 Consult Case Management - Discharge Planning Routine Consult Gastroenterology Routine Consult General Surgery Routine Procedures Performed Operation Date: 12/17/19 08:30 Actual Procedures p Colonoscopy - Nick Ricky Jefferson, DO Ordered Studies 12/17/19 10:00 CT abd pelvis oral con only Stat Hospital Course (1) Ulcerative pancolitis: - Admit to med/surg -Also has microperforation -Was treated with IV steroids Patient appears to be improving as no longer having blood in his stools. -appreciate input from GI and Surgery. will transition him to augmentin. - Appreciate input from Gen surgery and GI. -Will discharge on a slow prednisone taper hemoglobin appears to be stable (2) Cirrhosis of liver: (3) Autoimmune hepatitis: - Hx of such, follows with GI hepatology with [facility] - Pt reports that this was 15-20 years ago and he follows with this group, outpt within the last 2 years - will await CT report to see status of this (4) DVT prophylaxis: DVT ppx- teds, ambulatory CODE: Full Total Time Total Time Spent Total Time Spent (In Minutes): 32 Total Time Includes: Examination of the Patient, Discharge Planning and Medication Reconciliation Discharge Plan Discharge Items Patient Disposition: Home - Self-Care Reason For Visit: Diarrhea, Fecal Urgency, Other Fatigue, ULCERATIVE Discharge Diagnosis: ulcerative colitis Activity: Resume your previous activity Non-emergency contact: Primary Care Provider Call non-emergency contact if: you have any medication questions Follow-up/Referrals: Golden Dye III, CRNP [Primary Care Provider] - 12/25/19 9:20 am Diet: Regular and Low Fiber Addtl Attending Provider Instructions: You have been hospitalized for an acute medical problem. During your stay at [facility], we have made an effort to correct the problem that brought you to the hospital while keeping you as comfortable as possible. Medications were used to bring your condition under control and your discharge instructions will include directions for any medications you should take after leaving the hospital. Please make sure you see your Primary Care Provider as part of your follow up plan. Pending Studies at Discharge: No Stand-Alone Forms: Anesthesia/Sedation, Adult, My [facility], Work/School Release (Inpt), Smoking Cessation Medications and DC Order Prescriptions: New amoxicillin-pot clavulanate 875-125 mg tablet 1 tab PO BID Qty: 12 RF: 0 Calcium 600 + D(3) 600-125 mg-unit tablet 1 tab PO DAILY Qty: 60 RF: 0 prednisone 5 mg tablet 5 mg PO DAILY Qty: 182 RF: 0 prednisone 5 mg tablet 5 mg PO DAILY Qty: 70 RF: 0 Continued multivitamin with minerals Tablet 1 tab PO Q OTHER DAY Qty: 0 RF: 0 calcium carbonate-vitamin D3 [Os-Boubacar 500 + D3] 500 mg(1,250mg) -200 unit Tablet 1 tabs PO QAM Qty: 0 RF: 0 Suprep Bowel Prep Kit 17.5-3.13-1.6 gram recon soln 177 ml PO DAILY Qty: 354 RF: 0 Simponi 100 mg/mL pen injector 100 mg subcut UD RF: 0 Discharge Orders: Discharge Order (Routine); Ordered 12/21/19 Ordered By: Moshe Moya/Other Patient Handouts: A1C Admission Data Admit Date/Time: 12/17/19 09:30 Attending Provider: Moshe Coombs Admit Provider: Moshe Coombs Primary Care Provider: Golden Dye III Other Providers: Oswaldo Alonso ; Jemal Burns ; Nick Jefferson Other Interventions: Discharge Summary Assessment (RN) Last Done: 12/21/19 11:44 DC Date/Time DO NOT enter until pt leaves facility: 12/21/19 13:19 Coding Level of Care Code D/C Day Management >30 mins Diagnoses Ulcerative pancolitis K51.00 Cirrhosis of liver K74.60 Autoimmune hepatitis K75.4 DVT prophylaxis Z29.9 Time Spent (min) 32
== END 2019-12-21 13:19 | disposition home or self-care (01) ==
LOC: ENDO 07:27 → 3E 09:30 → SUATTDRO 09:30 → INTOOBSV 09:30